=== PATIENT | male | born 1965 | race Caucasian/White ===

== ENCOUNTER → 2020-01-25 | Outpatient (CLI) | payer BC ==
--- NOTE | 2020-01-25 10:32 | Diagnostic Imaging Report ---
PROCEDURE: CT abdomen and pelvis without contrast. TECHNIQUE: Multiple contiguous axial images were obtained through the abdomen and pelvis without the use of intravenous contrast. Auto Exposure Controls were utilized during the CT exam to meet ALARA standards for radiation dose reduction. INDICATION: Prostate cancer and difficulty urinating. No comparison. FINDINGS: There are suspicious sclerotic foci in the sacrum, a smaller lesion at the midline at the S1 body level present as well as a left sacral alar lesion measuring 1.8 cm just anterolateral to the S2 foramen. While there are degenerative changes to the bilateral SI joints, there is sclerosis along the lateral margin of the left sacral ala and to a greater extent the adjacent left iliac bone out of proportion to the degenerative changes and there is some abnormal periosteal reaction along the superficial/lateral cortex of the iliac bone at that level. Correlative bone scan recommended as further evaluation as osseous metastases are suspected given the provided history. This patient has chronic L5 spondylolysis defects without listhesis. No other suspicious bony finding. The lung base is clear. There are multiple small low-density hepatic lesions present, those that are large enough to be adequate to be confidently measured are fluid attenuating and clearly cystic however others are small less than 1 cm and cannot be further characterized. The adrenal glands are negative. There is no periaortic or abdominal retroperitoneal adenopathy. There is a mass medial to the right supra-acetabular level presumed pelvic metastatic node measuring 2.2 cm in diameter. The inguinal canals unremarkable. The prostate is not substantially enlarged and is heterogeneous and indents the bladder is base. Seminal vesicles grossly unremarkable. There are a few noninflamed sigmoid diverticuli. Spleen, adrenals, pancreas and gallbladder unremarkable. The kidneys are unobstructed. IMPRESSION: 1. Right pelvic sidewall mary jo mass suspicious for soft tissue metastasis. 2. A pelvic sclerotic bony lesion suspicious for bony metastatic disease, bone scan recommended. 3. Multiple cysts in the liver present, the smaller lesions are too small to be definitively characterized on this noncontrasted study. Dictated by: Dictated on workstation # [id number]
== END ==
LOC: RAD FS 08:53
PROVIDERS: ATTEND Urology
DX: C61 Malignant neoplasm of prostate (principal); R19.09 Other intra-abdominal and pelvic swelling, mass and lump; K76.89 Other specified diseases of liver; M89.9 Disorder of bone, unspecified
CPT/HCPCS: 74176

== ENCOUNTER → 2020-02-05 | Outpatient (CLI) | payer BC ==
--- NOTE | 2020-02-05 15:45 | Diagnostic Imaging Report ---
INDICATION: Prostate cancer TECHNIQUE: Anterior and posterior whole body planar imaging was performed after the administration of 26.7 mCi of technetium 99m MDP. FINDINGS: There is a large area of increased activity in the left ilium corresponding to the sclerotic lesions seen on CT. There is also multifocal uptake in the sacrum and ischii bilaterally. These too are suspect for metastatic disease. No other abnormal areas of activity are appreciated. There is physiologic uptake within the kidneys bilaterally with excretion of the urinary bladder. IMPRESSION: Multifocal osseous metastatic disease, as described. Dictated by: Dictated on workstation # [id number]
== END ==
LOC: CARD 12:00
PROVIDERS: ATTEND Urology
DX: C61 Malignant neoplasm of prostate (principal); C79.51 Secondary malignant neoplasm of bone
CPT/HCPCS: 78306; A9503